=== PATIENT | male | born 1965 | race Caucasian/White ===

== ENCOUNTER 2019-01-08 18:54 | Observation (INO) ==
[2019-01-08 19:26] LABS: BASO# 0.05 X1000 (0.0-0.2); BASO% 0.6 % (0.0-0.8); EOS# 0.22 X1000 (0.0-0.7); EOS% 2.5 % (0.0-10.0); HEMATOCRIT 42.3 % (42.0-52.0); HEMOGLOBIN 15.1 g/dL (14.0-18.0); IMM GRAN# 0.03 X1000 (0.0-0.04); IMM GRAN% 0.3 % (0.0-0.5); LYMPH# 1.39 X1000 (1.2-3.4); LYMPH% 15.8 % (20.5-51.1); MCH 32.3 PG (27-31); MCHC 35.7 g/dL (33-37); MCV 90.6 FL (81-99); MONO# 1.08 X1000 (0.11-0.59); MONO% 12.3 % (1.7-9.3); MPV 8.5 FL (7.4-10.4); NEUT% 68.5 % (42.2-75.2); PLT 286 X1000 (130-400); RBC 4.67 XMIL (4.7-6.1); RDW 11.9 % (11.5-14.5); WBC 8.77 X1000 (4.8-10.8)
[2019-01-08 19:38] LABS: INR 1.01; PROTIME 13.4 Seconds (11.0-16.0)
[2019-01-08 19:39] LABS: PTT 33.5 Seconds (22.3-41.8)
--- NOTE | 2019-01-08 19:42 | Diag Imaging Result Doc PS360 ---
EXAM: CT HEAD W/O CONTRAST 01/08/2019 HISTORY: ams, diaphoretic TECHNIQUE: This exam was performed using automated exposure control, adjustment of mA or kV according to patient size, and/or use of iterative reconstruction technique. COMMENT: The current study is compared with the previous examination of 08/20/2015. There are two ventriculoperitoneal shunts. The left shunt terminates in the area of the third ventricle the right shunt in the area of the anterior horn of the lateral ventricle on the left. There is no evidence of hydrocephalus. This was not the case at the time the previous examination of 08/20/2015. There is encephalomalacia in the subcortical white matter of the anterior parietal lobe and frontal lobe on the right. There is no evidence of bleed or abnormal extra-axial fluid collection. There is a mucous retention cyst in the left maxillary sinus. The calvarium is otherwise intact. IMPRESSION: No evidence of acute intracranial disease. Electronically signed by Andrew Lewis 01/08/2019 7:39 PM
--- NOTE | 2019-01-08 19:48 | Diag Imaging Result Doc PS360 ---
EXAM: CHEST-2 VIEWS 01/08/2019 HISTORY: ams TECHNIQUE: AP and lateral chest COMMENT: There is cardiomegaly. There are bilateral ventriculoperitoneal shunt catheters. Compared to 08/25/2018 there has been no significant change in the appearance of the chest. IMPRESSION: Stable chest. Electronically signed by Andrew Lewis 01/08/2019 7:46 PM
[2019-01-08 20:15] LABS: AGAP 11; ALB/GLOB RATIO 1.6; ALBUMIN 4.1 g/dL (3.5-5.0); ALKALINE PHOSPHATASE 101 U/L (32-122); BUN 9 mg/dL (8-22); CALCIUM 9.1 mg/dL (8.8-10.2); CHLORIDE 100 mmol/L (98-107); COSMO 270; CREATININE 0.7 mg/dL (0.7-1.2); ESTIMATED GFR > 60; GLUCOSE 127 mg/dL (70-104); GOT 30 U/L (10-34); GPT 18 U/L (10-44); POTASSIUM 3.8 mmol/L (3.5-5.1); SODIUM 135 mmol/L (136-145); TCO2 24 mmol/L (25-35); TOTAL BILIRUBIN 0.29 mg/dL (0.20-1.00); TOTAL PROTEIN 6.6 g/dL (6.3-8.3)
[2019-01-08 20:20] LABS: CK PROFILE 607 U/L (24-204)
[2019-01-08] MEDS ORDERED: NS 1,000 ML IV ONE ×2 (20:25→21:57)
[2019-01-08 20:26] LABS: URINE SOURCE CLEAN CATCH
[2019-01-08 20:31] LABS: UR EPITHELIAL CELLS <10 /HPF (<10); URINE BACTERIA NEGATIVE /HPF; URINE RBC <10 /HPF (<10); URINE WBC <10 /HPF (<10)
[2019-01-08 20:32] LABS: BILIRUBIN URINE NEGATIVE (NEGATIVE); BLOOD URINE NEGATIVE (NEGATIVE); COLOR YELLOW; GLUCOSE URINE NEGATIVE (NEGATIVE); KETONE URINE NEGATIVE (NEGATIVE); LEUKOCYTES URINE NEGATIVE (NEGATIVE); NITRITE URINE NEGATIVE (NEGATIVE); PROTEIN URINE NEGATIVE (NEGATIVE); TURBIDITY URINE CLEAR (CLEAR); UROBILINOGEN URINE NORMAL (NORMAL)
[2019-01-08 20:44] LABS: CK INDEX 1.7 (0.0-2.5); CK-MB 10.45 ng/mL (0.0-5.0)
[2019-01-08 20:46] LABS: UR AMPHETAMINES QUAL NONE DETECTED (NONE DETECT); UR BARBITUATES QUAL NONE DETECTED (NONE DETECT); UR BENZODIAZEPIN QUAL NONE DETECTED (NONE DETECT); UR CANNABINOIDS QUAL NONE DETECTED (NONE DETECT); UR COCAINE QUAL NONE DETECTED (NONE DETECT); UR METHADONE QUAL NONE DETECTED (NONE DETECT); UR OPIATES QUAL NONE DETECTED (NONE DETECT); UR OXYCODONE QUAL NONE DETECTED (NONE DETECT); UR PCP QUAL NONE DETECTED (NONE DETECT)
--- NOTE | 2019-01-08 21:29 | EKG Report ---
Test Performed on : 01/08/2019 9:13:24 PM Test Reason : cp Blood Pressure : / mmHG Vent. Rate : 054 BPM Atrial Rate : 054 BPM P-R Int : 180 ms QRS Dur : 130 ms QT Int : 462 ms P-R-T Axes : 044 001 053 degrees QTc Int : 438 ms Sinus bradycardia. Nonspecific intraventricular block Abnormal ECG When compared with ECG of 08-JAN-2019 21:12, (Unconfirmed) No significant change was found Unconfirmed Result
--- NOTE | 2019-01-08 21:34 | EKG Report ---
Test Performed on : 01/08/2019 9:12:51 PM Test Reason : syncope Blood Pressure : / mmHG Vent. Rate : 051 BPM Atrial Rate : 051 BPM P-R Int : 182 ms QRS Dur : 130 ms QT Int : 470 ms P-R-T Axes : 048 002 055 degrees QTc Int : 433 ms Poor data quality, interpretation may be adversely affected Sinus bradycardia. Nonspecific intraventricular block Abnormal ECG When compared with ECG of 08-JAN-2019 19:00, (Unconfirmed) No significant change was found Unconfirmed Result
--- NOTE | 2019-01-08 22:05 | EKG Report ---
Test Performed on : 01/08/2019 7:00:46 PM Test Reason : CP Blood Pressure : / mmHG Vent. Rate : 067 BPM Atrial Rate : 067 BPM P-R Int : 170 ms QRS Dur : 130 ms QT Int : 396 ms P-R-T Axes : 052 -08 063 degrees QTc Int : 418 ms Normal sinus rhythm. Nonspecific intraventricular block Nonspecific T wave abnormality Abnormal ECG When compared with ECG of 25-AUG-2018 18:19, QT has shortened Unconfirmed Result
--- NOTE | 2019-01-08 22:53 | HISTORY AND PHYSICAL ---
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 On arrival to the ER, patient was noted to be pallid, diaphoretic. Patient reports sweating excessively despite drinking lots of water. He denies any nausea, vomiting, diarrhea. He says his urine output has declined. When he was transferred to the room in the ER, he complained of transient left chest pain, which has since resolved spontaneously. PHYSICAL EXAMINATION: His exam was essentially benign. His vital signs were 170/105 and heart rates anywhere between 54 and 68 with no evidence of orthostatic findings. Her respiratory exam was normal. Good pulse volume. LABORATORY WORK: Notable for just a CK of 607. Troponin x2 was negative. Head CT was done, which was negative for any acute intracranial disease. Chest stable. ASSESSMENT: Heat exhaustion, hypertension, transient chest pain. Aggressively hydrate patient. Do serial cardiac enzymes x2, and I noted that patient was profoundly bradycardic, and I am not aware of him being on any medication that could have caused bradycardia; however, we will stay away from anything that would aggravate this. It is possible that patient in addition to having heat exhaustion may have developed a vagal response. We will hold Raul inhibitors in light of patient presumed depleted intravascular volume from sweating. Continues his other home medications for epilepsy and nifedipine for blood pressure. cc: MD Katie Neumann MD
--- NOTE | 2019-01-08 23:25 | PROVIDER DOCUMENTATION ---
This chart was entered by Rosana Sahni Scribe, acting as scribe for Richard Holman CRNP. HPI-General Adult - General Chief Complaint: Near Syncope Stated Complaint: SYNCOPE Time Seen by Provider: 01/08/19 18:59 Source: patient Allergies/Adverse Reactions: Patient Allergies Allergy/AdvReac Type Severity Reaction Status Date / Time latex Allergy RASH Verified 01/08/19 20:49 Home Medications: Home Medication List Medication Instructions Recorded Confirmed Last Taken Type Carbamazepine [Tegretol] 200 mg PO BID 09/24/14 08/25/18 08/25/18 History Lisinopril 10 mg PO HS 01/19/15 08/25/18 1 Day Ago History ~08/24/18 Lovastatin 20 mg PO QHS 03/05/15 08/25/18 1 Day Ago History ~08/24/18 Gabapentin [Neurontin] 100 mg PO QHS PRN 07/07/16 08/25/18 2 Days Ago History ~08/23/18 Nifedipine [Nifedipine ER] 60 mg PO DAILY 09/22/16 08/25/18 08/25/18 History Azithromycin [Zithromax Z-Davey] 250 mg PO DIRECTED #1 pkg 08/25/18 Unknown Rx Prednisone 40 mg PO DAILY #4 tab 08/25/18 Unknown Rx - History of Present Illness -Gen Adult Nature of Presenting Problems: pt is a 53 yr old male presenting with complaint of feeling faint, hot, dizzy. 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 pt denies any chest pain or shortness of breath, no seizures or syncope. pt was found by co worker leaning against wall, sweating. Location of Pain/Injury: reports: generalized (weakness) Pain Radiation: reports: no radiation Quality of Pain: reports: none (no pain, weakness only) Severity: reports: moderate Onset/Duration: reports: this evening Timing: reports: still present Context/Activities at Onset: reports: moderate activity (placing trash in compactor outside) Modifying Factors: improves with: nothing Associated Symptoms: reports: diaphoresis, dizziness, fatigue, weakness. denies: back/neck pain, chest pain, fever/chills, nausea, shortness of breath Similar Symptoms Previously?: No Recently seen or treated by another doctor?: No Review of Systems - Adult - REVIEW OF SYSTEMS - ADULT Constitutional: reports: fatique. denies: chills, fever Eyes: denies: blurred vision, double vision Ears, Nose, Mouth & Throat: reports: no symptoms reported Cardiovascular: denies: chest pain, palpitations, syncope Respiratory: denies: cough, dyspnea on exertion, shortness of breath Gastrointestinal: denies: abdominal pain, nausea, vomiting Genitourinary: reports: no symptoms reported Musculoskeletal: reports: muscle weakness Integumentary: reports: no symptoms reported Neurological: reports: dizziness/vertigo. denies: headache/migraines, seizure, syncope Psychiatric: reports: no symptoms reported Endocrine: reports: no symptoms reported Hematologic/Lymphatic: reports: no symptoms reported Allergic/Immunologic: reports: no symptoms reported All Other Systems: Reviewed and Negative Past History - Adult - PAST MEDICAL HISTORY-ADULT Review of Records: reports: Old Records Reviewed, Nursing Assessment Review, Medications Reviewed, Social history reviewed & non-contributory. Major Childhood Illnesses: reports: denies history Cardiovascular: reports: HTN, hyperlipidemia Respiratory: reports: asthma Gastrointestinal: reports: denies history Obstetrical/Gynecological: reports: denies history Genitourinary: reports: denies history Musculoskeletal: reports: denies history Neurological: reports: CVA, Seizures/Epilepsy, other (Hydrocephalus) Endocrine/Immune: reports: denies history Other Conditions: reports: denies history - PRIOR SURGERIES/PROCEDURES Surgical/Procedure History: reports: hernia repair, orthopedic (extremity), other (shunt) - IMMUNIZATION STATUS Childhood Immunizations: See Nurse Assessment Flu Vaccine: See Nurse Assessment - FAMILY HISTORY Family History: reviewed, not pertinent - SOCIAL HISTORY Smoking: non-smoker Substance Use: denies Living Situation: family Physical Exam-General - PHYSICAL EXAM-ADULT Initial Vital Signs Reviewed: Yes - CONSTITUTIONAL General Appearance: alert, no apparent distress, obese - EYES Eyes: PERRL/EOMI - HEAD, EARS, NOSE, MOUTH & THROAT HENMT: normocephalic/atraumatic, moist mucous membranes - NECK Neck: non-tender, full range of motion, supple, normal inspection - RESPIRATORY Respiratory: chest non-tender, lungs clear, normal breath sounds - CARDIOVASCULAR Cardiovascular: normal peripheral pulses, regular rate, rhythm, no edema - GASTROINTESTINAL (ABDOMEN) Abdominal Exam: normal bowel sounds, non tender, soft - LYMPHATIC Lymphatic: no adenopathy - MUSCULOSKELETAL Back Exam: normal inspection, no CVA tenderness, no vertebral tenderness Extremity: normal range of motion, non-tender, normal gait - SKIN Integumentary: normal color, normal turgor, diaphoresis - NEUROLOGIC Neurologic: grossly normal - PSYCHIATRIC Psych/Mental Status: normal mood/affect Progress - PLAN OF CARE/RESULTS Progress/Plan/Lab Results: Orders Category Date Time Status CBC WITH DIFF [HEME] Stat Lab 01/08/19 19:00 Ordered CK PROFILE [SP CHEM] Stat Lab 01/08/19 19:00 Uncollected COMPREHENSIVE METABOLIC PANEL [CHEM] Stat Lab 01/08/19 19:00 Uncollected TROPONIN T Stat Lab 01/08/19 19:00 Uncollected EKG [EKG] Stat Ther 01/08/19 19:00 Ordered Result Diagrams: 01/08/19 19:20 01/08/19 19:20 - REASSESSMENT Reassessment #1 Time Reassessed: 20:50 (Pt states he feel minimally better. Discussed pt with Dr Barreto, suggests ambulating pt around ER to see if he is symptomatic) Reassessment #2 Time Reassessed: 21:51 (pt ambulated per RN, pt became very weak, unable to ambulate. ) - EKG 1 Time of EKG reading by physician:: 19:00 EKG Read and Signed by:: Amarjit Barreto EKG Interpretation (*Must complete 3 of following elements*): Abnormal (non specific t wave abnormality) Rate: 67 Rhythm: nsr Caldwell: normal QRS: NSIVCD TN Interval: normal 2 Time of EKG reading by physician:: 21:13 EKG Read and Signed by:: Amarjit Barreto EKG Interpretation (*Must complete 3 of following elements*): Abnormal Rate: 54 Rhythm: Sinus bradycardia QRS: NSIVCD - XRAY 1 XRAY Study: Chest Impression: Normal (Signed EXAM: CHEST-2 VIEWS 01/08/2019 HISTORY: ams TECHNIQUE: AP and lateral chest COMMENT: There is cardiomegaly. There are bilateral ventriculoperitoneal shunt catheters. Compared to 08/25/2018 there has been no significant change in the appearance of the chest. IMPRESSION: Stable chest. Electronically signed by Andrew Lewis 01/08/2019 7:46 PM 01/08/191945 Interpreting Physician: Andrew Lewis MD Dictated Date/Time: 01/08/191943 cc: Richard Holman; Katie Butler MD) - CT/MRI 1 CT Study: Head Impression: Normal (Signed EXAM: CT HEAD W/O CONTRAST 01/08/2019 HISTORY: ams, diaphoretic TECHNIQUE: This exam was performed using automated exposure control, adjustment of mA or kV according to patient size, and/or use of iterative reconstruction technique. COMMENT: The current study is compared with the previous examination of 08/20/2015. There are two ventriculoperitoneal shunts. The left shunt terminates in the area of the third ventricle the right shunt in the area of the anterior horn of the lateral ventricle on the left. There is no evidence of hydrocephalus. This was not the case at the time the previous examination of 08/20/2015. There is encephalomalacia in the subcortical white matter of the anterior parietal lobe and frontal lobe on the right. There is no evidence of bleed or abnormal extra-axial fluid collection. There is a mucous retention cyst in the left maxillary sinus. The calvarium is otherwise intact. IMPRESSION: No evidence of acute intracranial disease. Electronically signed by Andrew Lewis 01/08/2019 7:39 PM 01/08/191938 Interpreting Physician: Andrew Lewis MD Dictated Date/Time: 01/08/191936 cc: Richard Holman; Katie Butler MD) Comparison with other Films: no changes (08/20/15) - CONSULTS/PCP/HOSPITALIST Notification #1 *Consult/PCP/Hospitalist*: Dr Concepcion, hospitalist Time Discussed: 21:55 Consult Disposition: Will see in ED, Admit Departure - Departure Date of Disposition Decision: 01/08/19 Time of Disposition Decision: 21:55 DIAGNOSIS: Syncope Qualifiers: Syncope type: heat syncope Encounter type: initial encounter Qualified Code(s): T67.1XXA - Heat syncope, initial encounter Hypertension Qualifiers: Hypertension type: essential hypertension Qualified Code(s): I10 - Essential (primary) hypertension Disposition: ADMITTED INPATIENT 09 Certified Medical Emergency: Emergent Condition: Fair Referrals and Follow-Ups: Katie Butler MD [Primary Care Provider] - - Critical Care Note This patient required my direct & personal management of CC.: No Attestation - Physician/ MICHA Attestation Patient care was provided by Advanced Practice Provider:: Yes Advanced Practice Provider:: Richard Holman Advanced Practice Provider documentation review:: The Mid-level provider documentation, treatment plan and medical decision making was reviewed by the physician who agrees with all treatment and medical decision making by the MLP. The physician spent face to face time with patient:: No Advanced Practice Provider documentation review:: Supervising physician onsite and consulted in the evaluation and care of this patient. The physician did not have a face to face encounter with the patient. This chart was documented by the indicated scribe, (Rosana Sahni, Hakan) and accurately reflects the services I performed and decisions made by me, Richard Holman, BE, as attested by the provider's signature.
[2019-01-09] MEDS ORDERED: ZOFRAN IV PRN (00:04)
[2019-01-09] MEDS ORDERED: ADALAT CC PO ONE (00:04)
[2019-01-09] MEDS: TEGRETOL PO SCH ×3 (00:38→20:14)
[2019-01-09] MEDS: TYLENOL PO PRN (00:39)
[2019-01-09] MEDS: NS 1,000 ML IV SCH ×3 (00:39→17:17)
[2019-01-09] MEDS ORDERED: VENTOLIN HFA INH PRN (02:25)
[2019-01-09 04:05] LABS: WBC 8.54 X1000 (4.8-10.8)
[2019-01-09 04:06] LABS: BASO# 0.03 X1000 (0.0-0.2); BASO% 0.4 % (0.0-0.8); EOS# 0.24 X1000 (0.0-0.7); EOS% 2.8 % (0.0-10.0); HEMATOCRIT 44.2 % (42.0-52.0); HEMOGLOBIN 15.7 g/dL (14.0-18.0); IMM GRAN# 0.03 X1000 (0.0-0.04); IMM GRAN% 0.4 % (0.0-0.5); LYMPH# 1.31 X1000 (1.2-3.4); LYMPH% 15.3 % (20.5-51.1); MCH 32.4 PG (27-31); MCHC 35.5 g/dL (33-37); MCV 91.3 FL (81-99); MONO# 1.06 X1000 (0.11-0.59); MONO% 12.4 % (1.7-9.3); MPV 8.6 FL (7.4-10.4); NEUT# 5.87 X1000 (1.4-6.5); NEUT% 68.7 % (42.2-75.2); PLT 263 X1000 (130-400); RBC 4.84 XMIL (4.7-6.1)
[2019-01-09 04:18] LABS: AGAP 7; BUN 7 mg/dL (8-22); CALCIUM 8.6 mg/dL (8.8-10.2); CHLORIDE 104 mmol/L (98-107); COSMO 271; CREATININE 0.7 mg/dL (0.7-1.2); ESTIMATED GFR > 60; GLUCOSE 86 mg/dL (70-104); POTASSIUM 3.9 mmol/L (3.5-5.1); SODIUM 137 mmol/L (136-145); TCO2 26 mmol/L (25-35)
--- NOTE | 2019-01-09 04:48 | HISTORY AND PHYSICAL ---
PRIMARY CARE PROVIDER: Katie Butler MD. DATE AND TIME: 01/08/2019 at 2315. CHIEF COMPLAINT: Near-syncope. HISTORY OF PRESENT ILLNESS: Mr. Ku is a 53-year-old male who presented to the ER on the afternoon of January 08 at 1854 hours. 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 He states that he did come into work at around 3 p.m., and from 3 p.m. until just prior to him signing into the ER that he had been inside and outside, back and forth all day long. 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 He states that he did begin to feel very hot, he got diaphoretic, he became lightheaded, and did feel weak. He did report some left-sided chest pain that radiated across to his right chest at the time of onset of his symptoms as well as some lower crampy abdominal pain, though, he states that these symptoms have subsided since he arrived to the ER. He denies any return of his chest pain or abdominal pain, and is not complaining of these symptoms at this time. At this time, he is still reporting feeling a little weak and he does have a headache. The patient states that he was drinking water throughout the day. He does report a decrease in his urine output, and did state that his urine was very dark in color previously. He denies any new or recent changes to any of his medications. He denies any shortness of breath or cough. He denies any nausea, vomiting, or diarrhea. He denies any dysuria. The patient does have some chronic bilateral pain in his feet, though he states this is not worsened or changed in nature. He denies recently being sick or being out in the heat prior to coming to work today. He also denies any fever, body aches, or chills. Upon evaluation in the ER, the patient's initial vital signs were heart rate 71, respirations 20, blood pressure is 184/110, oxygen saturation was 94% on room air. The patient has been slightly bradycardic, in the mid 50s at times in the ER, though looking back at his previous vital signs, his heart rate normally does tend to hang in the 50s to high 60s . Laboratory results revealed slightly elevated CK at 607 with a CK index of 1.7, CK-MB of 10.45, though his troponin was negative at 0.01. EKG showed normal sinus rhythm at a rate of 67 bpm, with a QTc of 418 msec, On the bedside monitor the patient does appear to be have sinus bradycardia. At this time, the patient will be admitted for further treatment and evaluation of near-syncope and possible heat exhaustion. REVIEW OF SYSTEMS: A 14-point review of systems was conducted with the patient and all were negative, except for pertinent positives mentioned above in HPI. PAST MEDICAL HISTORY: 1. Hydrocephalus. 2. History of CVA at age 17. 3. Seizure disorder. Though the patient states he has not had a seizure since 2016. 4. Hypertension. 5. Hyperlipidemia. 6. Chronic foot and joint pain. 7. Mild asthma. PAST SURGICAL HISTORY: 1. Multiple EQUIP MAINT ENG shunts and complications related to these. 2. Two umbilical hernia repairs by Dr. Salgado, the last one being in 1997. 3. Surgical repair of an incarcerated ventral hernia with Dr. Lin in 2016. 4. Superficial blood clot removal from right foot. 5. Cyst removed from his left foot. 6. Vein surgery on his right leg. SOCIAL HISTORY: The patient denies any alcohol or illicit drug use. He states that he did use to use smokeless tobacco, though this was a very long time ago, he does not use any of this presently. 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 FAMILY HISTORY: Positive for his mother having a history of hypertension. He does not know his father's past medical history. ALLERGIES: Patient has allergies to latex. HOME MEDICATIONS: 1. Tegretol 200 mg p.o. b.i.d. 2. Neurontin 100 mg p.o. at bedtime p.r.n. 3. Lisinopril 10 mg p.o. at bedtime. 4. Lovastatin 20 mg p.o. at bedtime. 5. Nifedipine extended release 60 mg p.o. daily. 6. Ventolin HFA inhaler 2 puffs q.6 hours as needed for asthma attack. DIAGNOSTIC DATA/LABORATORY RESULTS: 1. White blood cell count 8,770, hemoglobin 15.1, hematocrit 42.3, platelet count is 286,000. PT 13.4, INR 1.01, PTT is 33.5. Sodium 135, potassium 3.8, chloride 110, bicarb 24, BUN 9, creatinine 0.7. The GFR greater than 60, glucose 127, calcium 9.1, magnesium 2. Liver function tests are within normal limits. CK 607, CK index 1.7, CK-MB 10.45, troponin less than 0.01, with a repeat that was negative as well. Urinalysis was obtained via clean catch, was negative for protein, glucose, ketones, blood, nitrites, leukocytes, white blood cells, or bacteria. 2. Urine drug screen was negative. 3. Serum alcohol was 0. 4. EKG showed normal sinus rhythm at a rate of 67. 5. Chest x-ray showed cardiomegaly. There were bilateral ventriculoperitoneal shunt catheters noted. Though, compared to chest x-ray in July 2018, there has been no significant change in the appearance of the chest. This is per Radiology. 6. CT of the head without contrast showed no evidence of acute intracranial disease. There were noted to be 2 ventriculoperitoneal shunts noted, though there was no evidence of hydrocephalus. There is encephalomalacia in the subcortical white matter of the anterior parietal lobe and frontal lobe on the right. There is no evidence of blood or abnormal extra- axial fluid collection. There is mucous retention cyst in the left maxillary sinus. This is per Radiology. PHYSICAL EXAMINATION: VITAL SIGNS: Temperature 97.6 degrees, heart rate 60, respirations 18, blood pressure is 181/109, oxygen saturation is 99 percent on room air. GENERAL: Mr. Ku is a pleasant 53-year-old male, he was resting in the ER stretcher. He was in no acute distress. He was awake, alert, and able to answer questions appropriately. HEENT: Head is atraumatic, normocephalic. Pupils are equal, round, reactive to light, were 3 mm bilaterally and brisk. Oral mucosa is moist. Oropharynx is clear. NECK: Supple. Trachea midline. CARDIOVASCULAR: Patient has S1, S2 present. No murmurs, gallops, rubs appreciated with a regular rate and rhythm. PULMONARY: Patient has symmetrical chest expansion bilaterally. He did have a slight inspiratory and expiratory wheeze noted. ABDOMEN: Soft, does not appear to be distended, but the patient does have a protuberant abdomen noted. He does have multiple surgical scars noted to his abdomen. Upon palpation, abdomen is nontender. Bowel sounds are present in all 4 quadrants, were normoactive. EXTREMITIES: No cyanosis or edema noted. Pulse, motor, and sensory were intact in all extremities. Radial and pedal pulses were 2+ bilaterally. INTEGUMENTARY: Skin is pink, warm, and dry. NEUROLOGICAL: Patient is alert and oriented to person, place, time, and situation. He is able to answer questions appropriately. He is able to move all extremities. He does have equal hand grasps and muscle strength bilaterally. At this time, there are no focal neurological deficits noted. ASSESSMENT AND PLAN: 1. Heat exhaustion. 2. Near-syncope. For #1 and 2, we do think the patient possibly being out in the heat today may have been the cause of his symptoms. It was very hot outside, in the high 90s. The heat index was up to as high as 110. He did receive 2 L normal saline bolus in the ER. We will continue with normal saline at 125 mL/h. The patient, at this time, is still reporting feeling kind of weak and having a headache, though he has not reported any further symptoms of feeling dizzy, lightheaded, shortness of breath, or chest pain. We will continue with a series of cardiac enzymes. We will repeat a BMP in the morning as well. We will continue to follow this closely. He will be on continuous cardiac telemetry. 3. Bradycardia. The patient is having some slight bradycardia, though this does appear to be a sinus bradycardia. Looking back at his previous vital signs, his heart rate does tend to hang in the high 50s to high 60s on a regular basis. We will continue to monitor this closely. He will be on continuous cardiac telemetry. He does not take any medicines that could be exacerbating or contributing to his bradycardia. We will also continue the series of cardiac enzymes and a repeat EKG in the morning. 4. History of seizures. We will continue the patient's Tegretol. He denied missing any recent doses of this medication. 5. Hypertension. The patient's blood pressure has been elevated since arriving to the ER. He denied missing any of his doses of his blood pressure medicine. We will give him nifedipine extended release 30 mg tonight, and we will continue his regular dose of nifedipine in the morning. Though, given his presentation of heat exhaustion and volume depletion, we will hold his lisinopril at this time. 6. Deep vein thrombosis prophylaxis will be provided with sequential compression devices. The patient has been placed on the medical floor telemetry. He will have vital signs q.4 hours strict intake and output. He will be on a heart healthy diet. Further orders and recommendations pending hospital course, diagnostic studies, and physician evaluation. Dictated by BE Franco for Zohreh Concepcion MD cc: MD Katie Neumann MD [facility]OSPITALAndrew
[2019-01-09 04:51] LABS: CK INDEX 2.3 (0.0-2.5); CK-MB 9.68 ng/mL (0.0-5.0)
--- NOTE | 2019-01-09 07:11 | EKG Report ---
Test Performed on : 01/09/2019 06:31:32 AM Test Reason : Bradycardia Blood Pressure : / mmHG Vent. Rate : 057 BPM Atrial Rate : 057 BPM P-R Int : 174 ms QRS Dur : 122 ms QT Int : 450 ms P-R-T Axes : 062 029 067 degrees QTc Int : 438 ms Sinus bradycardia. Nonspecific intraventricular conduction delay Borderline ECG When compared with ECG of 08-JAN-2019 21:13, (Unconfirmed) No significant change was found Confirmed by Winter Schultz MD ([id number]) on 01/10/2019 12:59:03 PM
[2019-01-09] MEDS: PROCARDIA ER PO SCH (08:26)
--- NOTE | 2019-01-09 11:29 | PROGRESS NOTE ---
DATE: 01/09/2019 SUBJECTIVE: Patient reports still feeling general malaise, not feeling completely fine. A little bit dizzy. OBJECTIVE: Vital Signs: Temperature 98.0, heart rate 55, respiratory rate 16, blood pressure 154/93, O2 saturation 97% on room air. General Examination: This is a 53-year-old male, lying in bed in no acute distress. Cardiovascular exam: S1, S2 heard. No murmurs, gallops, or rubs. Regular rate and rhythm. Respiratory exam: Clear bilaterally to auscultation. No work of breathing or using accessory muscles. Abdomen: Soft. Protuberant. Multiple surgical scars noted. No signs of peritoneal irritation. Extremities: No clubbing, cyanosis, or edema. Peripheral pulses present in both legs. Neurological exam: Patient is alert and oriented x3. Moves 4 extremities. LABORATORY DATA: Reviewed. ASSESSMENT AND PLAN: 1. Heat exhaustion and near syncope. Patient receiving intravenous fluids at this point with normal saline 125 mL/hour. The patient is not feeling completely fine. He still started with a little bit of dizziness, but no shortness of breath or chest pain any more. At this point, we will continue with current medications. 2. Bradycardia. The patient is still bradycardic. We do not know if he is on any beta blockers or any other medication. In any case, we will continue to monitor this patient closely. 3. History of seizures. We will continue with Tegretol. 4. Hypertension. Blood pressure is a little bit elevated. Home medications, in this case nifedipine, has been restarted. Lisinopril has not been restarted yet because of heat exhaustion. At this point, we will continue to monitor. 5. Deep vein thrombosis prophylaxis with sequential compression devices. DISPOSITION: I think we have to keep this patient 1 more day and tomorrow if he is feeling better, he can be discharged. cc: Alvaro Terrell MD
[2019-01-09 12:46] LABS: CK INDEX 2.2 (0.0-2.5); CK-MB 7.39 ng/mL (0.0-5.0)
[2019-01-10] MEDS: TYLENOL PO PRN (06:58)
[2019-01-10] MEDS: TEGRETOL PO SCH (08:09)
[2019-01-10] MEDS: PROCARDIA ER PO SCH (08:09)
[2019-01-10 11:35] VITALS: BP 149/83
[2019-01-10 11:51] LABS: BASO# 0.03 X1000 (0.0-0.2); BASO% 0.3 % (0.0-0.8); EOS# 0.16 X1000 (0.0-0.7); EOS% 1.5 % (0.0-10.0); HEMATOCRIT 46.9 % (42.0-52.0); HEMOGLOBIN 16.9 g/dL (14.0-18.0); IMM GRAN# 0.02 X1000 (0.0-0.04); IMM GRAN% 0.2 % (0.0-0.5); LYMPH# 1.21 X1000 (1.2-3.4); LYMPH% 11.5 % (20.5-51.1); MCH 32.6 PG (27-31); MCV 90.4 FL (81-99); MONO# 1.24 X1000 (0.11-0.59); MONO% 11.8 % (1.7-9.3); MPV 8.6 FL (7.4-10.4); NEUT# 7.84 X1000 (1.4-6.5); NEUT% 74.7 % (42.2-75.2); PLT 310 X1000 (130-400); RBC 5.19 XMIL (4.7-6.1); RDW 12.1 % (11.5-14.5)
[2019-01-10 12:15] LABS: AGAP 11; ALB/GLOB RATIO 1.5; ALBUMIN 4.3 g/dL (3.5-5.0); ALKALINE PHOSPHATASE 101 U/L (32-122); BUN 13 mg/dL (8-22); CALCIUM 9.5 mg/dL (8.8-10.2); CHLORIDE 100 mmol/L (98-107); COSMO 266; CREATININE 0.8 mg/dL (0.7-1.2); ESTIMATED GFR > 60; GLUCOSE 96 mg/dL (70-104); GOT 21 U/L (10-34); GPT 16 U/L (10-44); POTASSIUM 4.1 mmol/L (3.5-5.1); SODIUM 133 mmol/L (136-145); TCO2 22 mmol/L (25-35); TOTAL BILIRUBIN 0.39 mg/dL (0.20-1.00); TOTAL PROTEIN 7.2 g/dL (6.3-8.3)
--- NOTE | 2019-01-10 13:16 | DISCHARGE SUMMARY ---
ADMISSION DATE: 01/08/2019 DISCHARGE DATE: 01/10/2019 DISCHARGE DIAGNOSES: 1. Heat exhaustion with near syncope. 2. Bradycardia, resolved. 3. History of seizure. 4. Hypertension. CONSULTATIONS: None. PROCEDURE: Chest x-ray done on admission showed an unstable chest. 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 On arrival to the ER, patient was noted to be pallid and diaphoretic. So, he was admitted to the hospital for the above-mentioned conditions. Patient was provided aggressive fluid resuscitation, and his urine output started to come up. Denies any fever or chills. Day of discharge, the patient reports feeling much better. So, at this point, he is going to be discharged in stable condition. DISCHARGE PHYSICAL EXAMINATION: Vital Signs: Temperature 98.2 degrees, heart rate 62, respiratory 15, blood pressure 149/83, O2 saturation 96% on room air. General examination: This is a 53-year-old male, lying in bed in no acute distress. Cardiovascular exam: S1, S2 heard. No murmurs, gallops, or rubs. Regular rate and rhythm. Respiratory exam: Clear bilaterally to auscultation. No work of breathing or using accessory muscles. Abdomen: Soft, nontender to palpation. Bowel sounds present. No organomegaly. Extremities: No clubbing cyanosis, or edema. Peripheral pulses present in both legs. Neurological exam: The patient is alert and oriented x3. Moves 4 extremities. DISCHARGE DISPOSITION: Home to self-care. FOLLOWUP: Follow up with Dr. Butler, his primary care physician, in 1 to 2 weeks if needed. LIST OF MEDICATIONS: We are not going to make any changes to his current medications now. cc: Alvaro Terrell MD
== END 2019-01-10 14:11 | disposition home or self-care (01) ==
LOC: 4N 18:54 → ED 18:54 → SUATTDRO 23:40
PROVIDERS: ATTEND Internal Medicine